=== PATIENT | female | born 1990 | race Caucasian/White ===

== ENCOUNTER → 2017-05-05 | Outpatient (CLI) | payer OTHER ==
[~2017-05-05] MED LIST: ANTIDEPRESSANTS; CITA20TA4 PO; CPR500T PO; CYCL10TA9 PO; NAPR-243 PO; ONDAN4ODT PO; OXYC-12 PO
[2017-05-05 14:02] LABS: BASOPHILS # (AUTO) 0.1 10^3/uL (0.0-0.1); BASOPHILS % (AUTO) 1 % (0-10); EOSINOPHILS # (AUTO) 0.5 10^3/uL (0.0-0.3); EOSINOPHILS % (AUTO) 4 % (0-10); HEMATOCRIT 45 % (35-52); HEMOGLOBIN 15.5 G/DL (11.5-16.0); LYMPHOCYTES # (AUTO) 3.5 X 10^3 (1.0-4.0); LYMPHOCYTES % (AUTO) 33 % (12-44); MEAN CORPUSCULAR HEMOGLOBIN 32 PG (25-34); MEAN CORPUSCULAR HGB CONC 35 G/DL (32-36); MEAN CORPUSCULAR VOLUME 91 FL (80-99); MEAN PLATELET VOLUME 9.4 FL (7.4-10.4); MONOCYTES % (AUTO) 9 % (0-12); NEUTROPHILS # (AUTO) 5.7 X 10^3 (1.8-7.8); NEUTROPHILS % (AUTO) 53 % (42-75); PLATELET COUNT 340 10^3/uL (130-400); RED BLOOD COUNT 4.91 10^6/uL (4.35-5.85); RED CELL DISTRIBUTION WIDTH 13.4 % (10.0-14.5); WHITE BLOOD COUNT 10.7 10^3/uL (4.3-11.0)
[2017-05-05 14:29] LABS: BUN/CREATININE RATIO 13; CALCIUM 9.6 MG/DL (8.5-10.1); CARBON DIOXIDE 19 MMOL/L (21-32); CHLORIDE 109 MMOL/L (98-107); CREATININE SERUM 0.76 MG/DL (0.60-1.30); GFR ESTIMATED > 60; GLUCOSE 89 MG/DL (70-105); POTASSIUM 3.8 MMOL/L (3.6-5.0); SODIUM 140 MMOL/L (135-145)
[2017-05-05 14:34] LABS: ERYTHROCYTE SEDIMENTATION RATE 12 MM/HR (0-20)
== END ==
LOC: RAD 13:43
PROVIDERS: ATTEND Nurse Practitioner Family
DX: Z53.8 Procedure and treatment not carried out for other reasons (principal); R51 Headache
CPT/HCPCS: 36415; 80048; 85025; 85652; 86141

== ENCOUNTER 2017-06-18 20:36 | Emergency (ER) | payer OTHER ==
[~2017-06-18] VITALS: Ht 160 cm; Wt 68.0 kg
--- OUTSIDE RECORDS SUMMARY | 2017-06-18 20:41 | XMS REPORT ---
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
[2017-06-18] MEDS ORDERED: PROMETHAZINE INJ 25 MG/ML (PHENERGAN) AMP ONE (23:13)
[2017-06-18] MEDS ORDERED: LACTATED RINGERS 1,000 ML IV ONE ×2 (23:13→23:58)
[2017-06-19] MEDS ORDERED: PROMETHAZINE 25 MG (PHENERGAN) TAB PO ONE
--- NOTE | 2017-06-19 00:07 | ED Chest Pain ---
General Chief Complaint: Chest Pain Stated Complaint: CHEST PAIN Nursing Triage Note: pt reports having intermittent, "exploding" chest pain 10/31 starting approx 1-2 hours ago. pt has had n/v/d x 2 days. last emesis was approx 5 hrs ago, and was able to eat since without nausea. pt states she took alejandra aspirin 650mg CIRCLE EDGER. history of heart murmur and cardiac valve fusion as an . Nursing Sepsis Screen: No Definite Risk Source: patient Exam Limitations: no limitations History of Present Illness Date Seen by Provider: Jun 19, 2017 Time Seen by Provider: 22:45 Initial Comments The patient presents to the ER by private conveyance with her significant other and a chief complaint that about 7:30 tonight she started experience chest pain pointing to her epigastric low sternal region that radiates to her left chest and she had some tingling in her right arm. She has nausea and vomiting last to 3 days as well as some loose stools. She has had no blood in her stool or vomitus. She's had no fevers or chills but she has felt tired and dehydrated. 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 She has had no cough, shortness of breath or wheezing. She has no history of asthma. She is a regular smoker. 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 She has no personal history of coronary disease nor a primary family history of early-onset coronary disease. She does not have high blood pressure, hypothyroidism or diabetes. The patient does not use control but she is on her period currently. The patient had some leftover Zofran from a previous illness that was not and she had taken a couple tablets in the last couple days and it has been working for about 4 hours at the time to keep her nausea and check. She has no history of GERD or reflux. Allergies and Home Medications Allergies Coded Allergies: Sulfa(Sulfonamide Antibiotics) (Verified Allergy, Unknown, 11/28/06) Home Medications Ciprofloxacin 500 Mg Tablet, 1 TAB PO BID, (Reported) Citalopram Hydrobromide 20 Mg Tablet, 20 MG PO DAILY, (Reported) Ondansetron Hcl 4 Mg Tab, 4 MG PO Q4H FOR NAUSEA AND VOMITING Prescribed by: YAHAIRA BERMUDEZ on 10/05/11 0432 Patient Home Medication List Home Medication List Reviewed: Yes Review of Systems Constitutional: No chills, No diaphoresis, No fever, malaise, No weakness EENTM: No Blurred Vision, No Double Vision Respiratory: Denies Cough, Denies Shortness of Air, Denies Wheezing Cardiovascular: See HPI, Chest Pain, Denies Edema, Denies Lightheadedness, Denies Palpitations, Denies Syncope Gastrointestinal: Denies Abdomen Distended, Denies Abdominal Pain, Denies Blood Streaked Stools, Denies Constipated, Diarrhea, Nausea, Vomiting Genitourinary: Denies Burning, Denies Discharge Musculoskeletal: No back pain, No joint pain Skin: No pruritus, No rash Psychiatric/Neurological: Denies Headache, Denies Numbness, Paresthesia (right hand.) Past [id number]-[id number] Hx Patient Social History Alcohol Use: Denies Use Recreational Drug Use: No Smoking Status: Current Everyday Smoker Type Used: Cigarettes Recent Foreign Travel: No Contact w/Someone Who Travel: No Recent Infectious Disease Expo: No Reproductive System Hx Reproductive Disorders: No Physical Exam Vital Signs Vital Signs - First Documented 06/18/17 20:40 Temp 97.0 Pulse 108 Resp 18 B/P (MAP) 143/92 (109) Pulse Ox 97 O2 Delivery Room Air Capillary Refill : Less Than 3 Seconds General Appearance: WD/WN, Anxious HEENT: PERRL/EOMI, TMs Normal, Normal ENT Inspection, Pharynx Normal (oral mucosa is dry) Neck: Full Range of Motion, Non Tender, Supple Respiratory: Chest Non Tender, Lungs Clear, Normal Breath Sounds, No Accessory Muscle Use, No Respiratory Distress Cardiovascular: Regular Rate, Rhythm, No Edema, No Murmur, Normal Peripheral Pulses Gastrointestinal: Normal Bowel Sounds, No Organomegaly, Non Tender, Soft Extremity: Normal Capillary Refill, Normal Inspection, Non Tender, No Calf Tenderness, No Pedal Edema Neurologic/Psychiatric: Alert, Oriented x3, No Motor/Sensory Deficits, Normal Mood/Affect Skin: Normal Color, Warm/Dry Progress/Results/Core Measures Results/Orders Lab Results Laboratory Tests Test 06/18/17 23:43 06/19/17 00:15 Range/Units White Blood Count 11.8 H 4.3-11.0 10^3/uL Red Blood Count 4.96 4.35-5.85 10^6/uL Hemoglobin 15.7 11.5-16.0 G/DL Hematocrit 46 35-52 % Mean Corpuscular Volume 93 80-99 FL Mean Corpuscular Hemoglobin 32 25-34 PG Mean Corpuscular Hemoglobin Concent 34 32-36 G/DL Red Cell Distribution Width 14.0 10.0-14.5 % Platelet Count 359 130-400 10^3/uL Mean Platelet Volume 10.0 7.4-10.4 FL Neutrophils (%) (Auto) 48 42-75 % Lymphocytes (%) (Auto) 38 12-44 % Monocytes (%) (Auto) 11 0-12 % Eosinophils (%) (Auto) 3 0-10 % Basophils (%) (Auto) 0 0-10 % Neutrophils # (Auto) 5.6 1.8-7.8 X 10^3 Lymphocytes # (Auto) 4.5 H 1.0-4.0 X 10^3 Monocytes # (Auto) 1.3 H 0.0-1.0 X 10^3 Eosinophils # (Auto) 0.3 0.0-0.3 10^3/uL Basophils # (Auto) 0.0 0.0-0.1 10^3/uL Sodium Level 140 135-145 MMOL/L Potassium Level 4.2 3.6-5.0 MMOL/L Chloride Level 108 H 98-107 MMOL/L Carbon Dioxide Level 21 21-32 MMOL/L Anion Gap 11 5-14 MMOL/L Blood Urea Nitrogen 12 7-18 MG/DL Creatinine 0.78 0.60-1.30 MG/DL Estimat Glomerular Filtration Rate > 60 BUN/Creatinine Ratio 15 Glucose Level 93 70-105 MG/DL Calcium Level 9.7 8.5-10.1 MG/DL Total Bilirubin 0.3 0.1-1.0 MG/DL Aspartate Amino Transf (AST/SGOT) 24 5-34 U/L Alanine Aminotransferase (ALT/SGPT) 28 0-55 U/L Alkaline Phosphatase 97 40-136 U/L Troponin I < 0.30 <0.30 NG/ML C-Reactive Protein High Sensitivity 0.43 0.00-0.50 MG/DL Total Protein 7.2 6.4-8.2 GM/DL Albumin 4.1 3.2-4.5 GM/DL Urine Color YELLOW Urine Clarity CLEAR Urine pH 5 5-9 Urine Specific [place] 1.030 H 1.016-1.022 Urine Protein 1+ H NEGATIVE Urine Glucose (UA) NEGATIVE NEGATIVE Urine Ketones NEGATIVE NEGATIVE Urine Nitrite NEGATIVE NEGATIVE Urine Bilirubin NEGATIVE NEGATIVE Urine Urobilinogen NORMAL NORMAL MG/DL Urine Leukocyte Esterase 1+ H NEGATIVE Urine RBC (Auto) 4+ H NEGATIVE Urine RBC 0-2 /HPF Urine WBC RARE /HPF Urine Squamous Epithelial Cells 2-5 /HPF Urine Crystals NONE /LPF Urine Bacteria TRACE /HPF Urine Casts NONE /LPF Urine Mucus MODERATE H /LPF Urine Culture Indicated NO My Orders Orders - PRADEEP BUTLER Promethazine Injection (Phenergan Injec (06/18/17 23:13) Lactated Ringers (Lr 1000 Ml Iv Solution (06/18/17 23:13) Cbc With Automated Diff (06/18/17 23:58) Comprehensive Metabolic Panel (06/18/17 23:58) Hs C Reactive Protein (06/18/17 23:58) Troponin I (06/18/17 23:58) Ua Culture If Indicated (06/18/17 23:58) Saline Lock/Iv-Start (06/18/17 23:58) Lactated Ringers (Lr 1000 Ml Iv Solution (06/18/17 23:58) Promethazine Tablet (Phenergan Tablet) (06/19/17 00:00) Ekg Tracing (06/18/17 23:58) Chest Pa/Lat (2 View) (06/19/17 ) Lidocaine 2% Viscous 15 Ml (Xylocaine Vi (06/19/17 00:15) Antacid Suspension (Mylanta Suspension (06/19/17 00:15) Famotidine Injection (Pepcid Injection) (06/19/17 00:12) Vital Signs/I&O Vital Sign - Last 12Hours 06/18/17 06/19/17 20:40 00:14 Temp 97.0 Pulse 108 Resp 18 B/P (MAP) 143/92 (109) Pulse Ox 97 O2 Delivery Room Air Room Air Blood Pressure Mean: 109 Progress Note #1: Time: 00:06 Progress Note The patient appears to be dehydrated secondary to it was likely a viral gastroenteritis. We'll get some lab work and a urinalysis as well as a chest x- ray, EKG and troponin. This unlikely she's having any coronary disease despite her congenital heart valve fusion. We'll give her a liter fluids and some Phenergan since she's been using Zofran at home recently. Her nausea is about gone but and her pain is improved from 8 or 9 down to a 6. We'll give her a GI cocktail she was having any benefit. Progress Note #2: Time: 00:50 Progress Note The patient's chest pain is now gone and her nausea is improved to the point it is gone. We'll let her get the rest of her fluids and allow her to go home with outpatient care for viral gastroenteritis. ECG Initial ECG Impression Date: Jun 18, 2017 Initial ECG Impression Time: 20:45 Initial ECG Rate: 105 Initial ECG Rhythm: S.Tach Initial ECG Intervals: Normal Initial ECG Impression: Normal Initial ECG Comparisson: No Previous ECG Available Comment Sinus tachycardia without ST segment elevation or depression. Diagnostic Imaging Diagonstic Imaging: Xray Plain Films/CT/US/NM/MRI: chest (2v) Comments No cardiomegaly. No acute cardiopulmonary process noted. No evidence of effusion. Reviewed: Reviewed by Me Departure Impression Impression: Primary Impression: Gastroenteritis and colitis, viral Additional Impression: Chest pain Qualified Codes: R07.9 - Chest pain, unspecified Disposition: 01 HOME, SELF-CARE Condition: Improved Departure-Patient Inst. Decision time for Depature: 00:51 Referrals: SUSHIL MARTINEZ DO (PCP/Family) Primary Care Physician Patient Instructions: Chest Pain That Is Not Caused by the Heart (DC), Viral Gastroenteritis, Adult (DC) Add. Discharge Instructions: Drink plenty of fluids especially sports drinks. Avoid caffeine. Use a brat diet for your diarrhea to consist of bananas, rice, applesauce and toast or other similar high-fiber non-spicy bland foods. If your diarrhea continues you can take 2 tablets of Imodium one time followed by another tablet every 4 hours if you're still having loose stools. If you have nausea you can take one tablet of Zofran every [address] it on your tongue and allowed to absorb your mouth as needed. If this is not enough you can also use the Phenergan 1 tablet by mouth every 6 hours. All discharge instructions reviewed with patient and/or family. Voiced understanding. Scripts Promethazine HCl (Promethazine Tablet) 25 Mg Tablet 25 MG PO Q6H Y for NAUSEA/VOMITING, #14 TAB 0 Refills Prov: PRADEEP BUTLER 06/19/17 Ondansetron (Ondansetron Odt) 4 Mg Tab.rapdis 4 MG PO Q6H Y for NAUSEA/VOMITING, #8 TAB 0 Refills Prov: PRADEEP BUTLER 06/19/17 Work/School Note: Work Release Form Date Seen in the Emergency Department: Jun 19, 2017 Return to Work: Jun 23, 2017 Restrictions: No Restrictions Copy Copies To 1: SUSHIL MARTINEZ TITUS J Jun 19, 2017 00:06
[2017-06-19] MEDS ORDERED: FAMOTIDINE 20MG/2ML IV (PEPCID) IV STA (00:12)
[2017-06-19] MEDS ORDERED: LIDOCAINE 2% VISCOUS 15 ML UDC PO ONE (00:15)
[2017-06-19] MEDS ORDERED: ANTACID SUSP 30 ML UDC (MYLANTA) PO ONE (00:15)
[2017-06-19 00:16] LABS: BASOPHILS % (AUTO) 0 % (0-10); EOSINOPHILS # (AUTO) 0.3 10^3/uL (0.0-0.3); EOSINOPHILS % (AUTO) 3 % (0-10); HEMATOCRIT 46 % (35-52); HEMOGLOBIN 15.7 G/DL (11.5-16.0); LYMPHOCYTES # (AUTO) 4.5 X 10^3 (1.0-4.0); LYMPHOCYTES % (AUTO) 38 % (12-44); MEAN CORPUSCULAR HEMOGLOBIN 32 PG (25-34); MEAN CORPUSCULAR HGB CONC 34 G/DL (32-36); MEAN CORPUSCULAR VOLUME 93 FL (80-99); MONOCYTES # (AUTO) 1.3 X 10^3 (0.0-1.0); MONOCYTES % (AUTO) 11 % (0-12); NEUTROPHILS # (AUTO) 5.6 X 10^3 (1.8-7.8); NEUTROPHILS % (AUTO) 48 % (42-75); PLATELET COUNT 359 10^3/uL (130-400); RED BLOOD COUNT 4.96 10^6/uL (4.35-5.85); WHITE BLOOD COUNT 11.8 10^3/uL (4.3-11.0)
[2017-06-19 00:26] LABS: BILIRUBIN,URINE NEGATIVE (NEGATIVE); CLARITY,URINE CLEAR; GLUCOSE, URINE (UA) NEGATIVE (NEGATIVE); KETONES,URINE NEGATIVE (NEGATIVE); LEUKOCYTE ESTERASE ,URINE 1+ (NEGATIVE); NITRITE,URINE NEGATIVE (NEGATIVE); PH,URINE 5 (5-9); PROTEIN,URINE 1+ (NEGATIVE); UROBILINOGEN,URINE NORMAL (NORMAL)
[2017-06-19 00:29] LABS: ALANINE AMINOTRANSFERASE 28 U/L (0-55); ALBUMIN 4.1 GM/DL (3.2-4.5); ALKALINE PHOSPHATASE 97 U/L (40-136); BILIRUBIN,TOTAL 0.3 MG/DL (0.1-1.0); BUN/CREATININE RATIO 15; CALCIUM 9.7 MG/DL (8.5-10.1); CARBON DIOXIDE 21 MMOL/L (21-32); CHLORIDE 108 MMOL/L (98-107); CREATININE SERUM 0.78 MG/DL (0.60-1.30); GFR ESTIMATED > 60; GLUCOSE 93 MG/DL (70-105); POTASSIUM 4.2 MMOL/L (3.6-5.0); SODIUM 140 MMOL/L (135-145); TOTAL PROTEIN 7.2 GM/DL (6.4-8.2)
[2017-06-19 00:29] LABS: COLOR,URINE YELLOW
[2017-06-19 00:31] LABS: RBC,URINE 0-2 /HPF
[2017-06-19 00:32] LABS: BACTERIA,URINE TRACE /HPF; WBC,URINE RARE /HPF
[2017-06-19] MEDS ORDERED: PROM25TA14 PO (00:56)
[2017-06-19] MEDS ORDERED: ONDA4TAB11 PO (00:56)
[2017-06-19 01:30] VITALS: BP 135/84
[2017-06-19] MEDS ORDERED: PROMETHAZINE INJ 25 MG/ML (PHENERGAN) AMP IVP ONE (01:30)
--- NOTE | 2017-06-19 05:46 | Diagnostic Imaging Report ---
INDICATION: Chest pain COMPARISON: 10/05/2011 FINDINGS: Frontal and lateral views of the chest demonstrate normal heart size and pulmonary vascularity. The lungs are clear. There are no signs of infiltrate, pleural effusions or pneumothoraces. The visualized osseous structures show no acute abnormalities. IMPRESSION: 1. No acute process. No signs of infiltrates, effusions or pneumothoraces. Dictated by: Dictated on workstation # [id number]
== END 2017-06-19 01:30 | disposition home or self-care (01) ==
LOC: EDUNIT# 20:36 → ER 20:38
DX: A08.4 Viral intestinal infection, unspecified (principal); F17.210 Nicotine dependence, cigarettes, uncomplicated; Z88.2 Allergy status to sulfonamides
CPT/HCPCS: 36415; 71046; 80053; 81000; 84484; 85025; 86141; 93005; 96361; 96374

== ENCOUNTER → 2019-06-24 | Outpatient (CLI) | payer OTHER ==
[~2019-06-24] MED LIST changes: +ONDA4TAB11 PO; +PROM25TA14 PO
== END ==
LOC: LABNPT 13:13
PROVIDERS: ATTEND Family Medicine
DX: R05 Cough (principal); R06.00 Dyspnea, unspecified; R50.9 Fever, unspecified
CPT/HCPCS: 87430; 87635; 87804

== ENCOUNTER → 2019-07-26 | Outpatient (CLI) | payer OTHER ==
[~2019-07-26] MED LIST changes: +HOLD METFORMIN - RECEIVED CONTRAST 20 ML VIAL IV SCH; +IOHEXOL 350 MG/ML 100 ML (OMNIPAQUE 350) VIAL IV ONE; +NS 100 ML (IVPB) BAG IV ONE
[2019-07-26 09:54] LABS: BASOPHILS % (AUTO) 0 % (0-10); EOSINOPHILS # (AUTO) 0.2 10^3/uL (0.0-0.3); EOSINOPHILS % (AUTO) 2 % (0-10); HEMATOCRIT 47 % (35-52); LYMPHOCYTES # (AUTO) 2.4 X 10^3 (1.0-4.0); LYMPHOCYTES % (AUTO) 25 % (12-44); MEAN CORPUSCULAR HEMOGLOBIN 31 PG (25-34); MEAN CORPUSCULAR HGB CONC 34 G/DL (32-36); MEAN CORPUSCULAR VOLUME 91 FL (80-99); MEAN PLATELET VOLUME 10.1 FL (7.4-10.4); MONOCYTES # (AUTO) 1.1 X 10^3 (0.0-1.0); MONOCYTES % (AUTO) 12 % (0-12); NEUTROPHILS # (AUTO) 5.7 X 10^3 (1.8-7.8); NEUTROPHILS % (AUTO) 60 % (42-75); PLATELET COUNT 348 10^3/uL (130-400); RED CELL DISTRIBUTION WIDTH 14.6 % (10.0-14.5); WHITE BLOOD COUNT 9.5 10^3/uL (4.3-11.0)
[2019-07-26 10:20] LABS: ALANINE AMINOTRANSFERASE 44 U/L (0-55); ALBUMIN 4.3 GM/DL (3.2-4.5); ALKALINE PHOSPHATASE 85 U/L (40-136); AMYLASE 73 U/L (25-125); BILIRUBIN,TOTAL 0.3 MG/DL (0.1-1.0); BUN/CREATININE RATIO 12; CALCIUM 9.3 MG/DL (8.5-10.1); CARBON DIOXIDE 19 MMOL/L (21-32); CHLORIDE 107 MMOL/L (98-107); CREATININE SERUM 0.81 MG/DL (0.60-1.30); GFR ESTIMATED > 60; GLUCOSE 98 MG/DL (70-105); LIPASE 26 U/L (8-78); SODIUM 139 MMOL/L (135-145); TOTAL PROTEIN 7.3 GM/DL (6.4-8.2)
--- NOTE | 2019-07-26 11:01 | Diagnostic Imaging Report ---
PROCEDURE: CT abdomen and pelvis with contrast. TECHNIQUE: Multiple contiguous axial images were obtained through the abdomen and pelvis after administration of intravenous contrast. Auto Exposure Controls were utilized during the CT exam to meet ALARA standards for radiation dose reduction. INDICATION: Fever, nausea, diarrhea. COMPARISON: Exam compared to 10/05/2011. FINDINGS: There were no findings of small or large bowel obstruction. There was no evidence for an ileus. No abnormal distention of the stomach. No perienteric or pericolonic edema. No focal inflammatory process. The appendix is visualized, air containing, and normal. There is no diverticulitis. The uterus, adnexa, and urinary bladder had an unremarkable appearance. A tubular lucency is presumed tampon transversely oriented in the lower pelvis. There is no adnexal lesion. There is no ascites. Liver density is compatible with likely mild degree of fatty infiltration. No bile duct dilatation. Seen only during the dynamic phase, there is focal hyperenhancement of the right hepatic lobe posteriorly without mass effect. It is imperceptible on the delayed images and is believed to be an incidental perfusion anomaly. The pancreas is unremarkable. The spleen is negative. The adrenals are negative. The kidneys are unobstructed. There is no mesenteric or retroperitoneal lymphadenopathy. IMPRESSION: Unobstructed urinary tracts. Normal appendix. No diverticulitis. No acute-appearing abnormality in this patient with likely mild hepatic steatosis and previous cholecystectomy. Dictated by: Dictated on workstation # [id number]
== END ==
LOC: RAD 09:31
PROVIDERS: ATTEND Nurse Practitioner Family
DX: R50.9 Fever, unspecified (principal); R11.10 Vomiting, unspecified; R19.7 Diarrhea, unspecified
CPT/HCPCS: 36415; 74177; 80053; 82150; 83690; 85025

== ENCOUNTER → 2020-02-14 | Outpatient (CLI) | payer BC ==
[~2020-02-14] MED LIST changes: -HOLD METFORMIN - RECEIVED CONTRAST 20 ML VIAL IV SCH; -IOHEXOL 350 MG/ML 100 ML (OMNIPAQUE 350) VIAL IV ONE; -NS 100 ML (IVPB) BAG IV ONE
--- NOTE | 2020-02-14 15:33 | Diagnostic Imaging Report ---
INDICATION: Ankle pain and swelling status post injury. COMPARISON: None. FINDINGS: Three views of the left ankle were obtained. There is no acute fracture or dislocation. No focal osseous lesions are seen. There is mild soft tissue swelling. There are no radiopaque foreign bodies. IMPRESSION: Mild soft tissue swelling but no evidence of acute fracture or dislocation of the left ankle. Dictated by: Dictated on workstation # [id number]
--- NOTE | 2020-02-14 15:34 | Diagnostic Imaging Report ---
INDICATION: Pain status post injury. COMPARISON: None. FINDINGS: Three views of the left foot demonstrate no acute fracture or dislocation. There are no focal osseous lesions. There is no soft tissue swelling. Joint spaces are well maintained. No radiopaque foreign bodies are seen. IMPRESSION: No acute fractures or dislocations of the left foot. Dictated by: Dictated on workstation # [id number]
--- NOTE | 2020-02-14 15:45 | Diagnostic Imaging Report ---
PROCEDURE: US left lower extremity venous. TECHNIQUE: Multiple Real-time grayscale images were obtained over the left lower extremity in various projections. Additional duplex Doppler and color Doppler images were also obtained. INDICATION: Pain and swelling in the left foot. FINDINGS: The unilateral left lower extremity venous Doppler and ultrasound exam is normal. The vascular compressibility, color flow, and Doppler waveforms are normal. No deep or superficial thrombus. No mass or fluid collection is demonstrated. IMPRESSION: Normal negative unilateral left lower extremity venous Doppler and ultrasound exam. Dictated by: Dictated on workstation # [id number]
== END ==
LOC: RAD 14:27
PROVIDERS: ATTEND Nurse Practitioner Family
DX: M79.89 Other specified soft tissue disorders (principal)
CPT/HCPCS: 73610; 73630